=== PATIENT | female | born 1965 | race Caucasian/White ===

== ENCOUNTER 2023-01-09 08:34 | Outpatient (OUT) | payer OTHER, SELFPAY ==
[2023-01-09 08:54] LABS: Basophils Absolute Auto 0.1 10^3/uL (0.0-0.1); Basophils Percent Auto 0.6 % (0.2-2.0); Eosinophils Absolute Auto 0.3 10^3/uL (0.0-0.7); Eosinophils Percent Auto 3.8 % (0.9-7.0); Hematocrit 44.5 % (36.0-48.0); Hemoglobin 14.9 g/dL (12.0-16.0); Immature Granulocytes Abs Auto 0.02 10^3/uL (0.00-0.03); Immature Granulocytes Pct Auto 0.2 % (0.0-0.5); Lymphocytes Absolute Auto 3.7 10^3/uL (1.2-3.8); Lymphocytes Percent Auto 41.8 % (20.5-60.0); Mean Corpuscular HGB Conc 33.5 g/dL (29.9-35.2); Mean Corpuscular Hemoglobin 29.6 pg (26.7-34.0); Mean Corpuscular Volume 88.3 fL (81.0-99.0); Mean Platelet Volume 11.2 fL (9.5-13.5); Monocytes Absolute Auto 0.6 10^3/uL (0.3-0.8); Monocytes Percent Auto 7.2 % (1.7-12.0); Neutrophils Absolute Auto 4.1 10^3/uL (1.4-6.5); Neutrophils Percent Auto 46.4 % (43.0-75.0); Platelet Count 269 10^3/uL (150-450); Red Blood Count 5.04 10^6/uL (4.20-5.40); Red Cell Distribution Width 13.1 % (11.0-15.0); White Blood Count 8.9 10^3/uL (4.0-11.0)
[2023-01-09 10:28] LABS: Alanine Aminotransferase 19 U/L (14-59); Albumin Level 3.7 g/dL (3.4-5.0); Alkaline Phosphatase 91 U/L (46-116); Anion Gap 11.4; Aspartate Amino Transferase 8 U/L (15-37); Calcium 9.8 mg/dL (8.5-10.1); Carbon Dioxide 30.8 mmol/L (21.0-32.0); Chloride 102 mmol/L (98-107); Chol HDL Ratio 4.2; Cholesterol 160 mg/dL (<=200); Estimated GFR (African America >60 (>=60); Estimated GFR (Non-African Ame 57 (>=60); Free T3 2.46 pg/mL (2.18-3.98); Globulin 3.7 g/dL; Glucose 218 mg/dL (74-106); HDL Cholesterol 38 mg/dL (40-60); Potassium 4.2 mmol/L (3.5-5.1); Sodium 140 mmol/L (136-145); Thyroid Stimulating Hormone 1.159 uIU/mL (0.358-3.740); Total Protein 7.4 g/dL (6.4-8.2); Triglycerides 142 mg/dL (<=150); VLDL CHOLESTEROL 28.4 mg/dL
[2023-01-09 11:22] LABS: Estimated Average Glucose 237 mg/dL; Glycohemoglobin A1C 9.9 % (4.5-6.2)
== END 2023-01-09 08:35 | disposition home or self-care (01) ==
PROVIDERS: PCP Family Medicine; Visit Provider Family Medicine
DX: Z00.00 Encounter for general adult medical examination without abnormal findings (principal)
CPT/HCPCS: 36415; 80053; 80061; 82306; 83036; 84436; 84443; 84481; 85025

== ENCOUNTER 2023-01-18 10:47 | Outpatient (OUT) | payer OTHER, SELFPAY ==
--- NOTE | 2023-01-18 10:53 | MM_ITS ---
Patient: ESTEVAN BELLA Exam Date: 01/18/2023 : 1965 Gender:F Ordering : DR Sherif Finch . Admission #: [id number] Family : Order #: [id number] CLICK HERE TO VIEW EXAM RADIOLOGY REPORT PROCEDURE: MM TOMOSYNTHESIS SCREENING BI COMPARISON: MG MAMM SCREEN MIN W CAD, 03/15/2019. MG MAMM SCREEN 3D MIN CAD, 08/11/2021. INDICATIONS: Z12.31 Calculator Name NCI Breast Cancer Risk Assessment Tool 5 Year Breast Cancer Risk 1.10% Lifetime Breast Cancer Risk 5.90% Personal Breast Cancer No Personal Ovarian Cancer No Treatments None Family Cancers Grandmother-maternal with breast cancer at age ~50; Grandmother-paternal with breast cancer at age ~50; Cousin-maternal with breast cancer at age 49. LOCATION: [facility] BREAST COMPOSITION: Scattered areas fibroglandular density. FINDINGS: DIAGNOSTIC CATEGORY 2--BENIGN FINDING. NO CHANGE FROM COMPARISON. Bilateral very nodular parenchymal pattern grossly stable but limiting diagnostic sensitivity for mass. Scattered benign-appearing calcifications are present. Scattered benign-appearing lymph nodes are present. RIGHT BREAST: No significant suspicious finding. LEFT BREAST: No significant suspicious finding. RECOMMENDATIONS: ROUTINE MAMMOGRAM AND CLINICAL EVALUATION IN 12 MONTHS. PLEASE NOTE: A NORMAL MAMMOGRAM DOES NOT EXCLUDE THE POSSIBILITY OF BREAST CANCER. A CLINICALLY SUSPICIOUS PALPABLE LUMP SHOULD BE BIOPSIED. Dictated by: Yousif Cruz MD on 01/18/2023 at 15:42 Approved by: Yousif Cruz MD on 01/18/2023 at 15:43
== END 2023-01-18 10:48 | disposition home or self-care (01) ==
LOC: MAMMO 10:47
PROVIDERS: PCP Family Medicine; Visit Provider Family Medicine
DX: Z12.31 Encounter for screening mammogram for malignant neoplasm of breast (principal); Z80.3 Family history of malignant neoplasm of breast
CPT/HCPCS: 77063; 77067

== ENCOUNTER 2023-12-16 14:55 | Outpatient (OUT) | payer SELFPAY ==
--- NOTE | 2023-12-16 14:56 | XR_ITS ---
The [address] [address] Patient Name: ESTEVAN BELLA MRN: [id number] date: 1965 Sex: F Assigned Patient Location: [facility] Current Patient Location: Accession/Order Number: [id number] Exam Date: 12/16/2023 14:56 Report Date: 12/17/2023 11:00 At the request of: SEDRICK DIAZ Procedure: XR chest 2V PROCEDURE: XR chest 2V DATE: 12/16/2023 1:56 PM CDT COMPARISONS: None. CLINICAL INDICATION: 58 years Female Wheezing R06.2 FINDINGS: The heart is slightly prominent. The pulmonary vasculature is not congested. There are findings consistent with a 2.4 cm calcified granuloma mid lower right lung. There is evidence of calcified right hilar nodes. The findings are consistent with granulomatous changes. The lungs are otherwise clear. There is no evidence of pleural effusion or pneumothorax. XR/XR chest 2V IMPRESSION: 1. Heart is slightly prominent 2. Old granulomatous changes right lung 3. No consolidating infiltrates to suggest pneumonia. Electronically authenticated by: DARIA ALONZO Date: 12/17/2023 11:00
== END 2023-12-16 14:56 | disposition home or self-care (01) ==
PROVIDERS: PCP Family Medicine; Visit Provider Family Medicine
DX: R06.2 Wheezing (principal)
CPT/HCPCS: 71046

== ENCOUNTER 2024-06-18 20:29 | Emergency (ER) | payer SELFPAY ==
--- OUTSIDE RECORDS SUMMARY | 2024-06-18 20:34 | XMS_ITS | CCD ---
Author Organization [facility] Care Team Providers Care Plastic Fabricator Name Role Phone Robbie Troy Unavailable [phone] Lamberto Pollack Unavailable Josette Cohn Unavailable JOE, DR DUBOSE Consulting Unavailable JOE, DR DUBOSE Primary Care Unavailable JOE, DR DUBOSE Admitting Unavailable JOE, DR DUBOSE Attending Unavailable JOE, DR DUBOSE Primary Care Unavailable JOE, DR DUBOSE Admitting Unavailable JOE, DR DUBOSE Attending Unavailable JOE, DR DUBOSE Consulting Unavailable [place], DR MARIUSZ Bueno Consulting Unavailable Allergies Allergy Classification Reported Allergen(s) Allergy Type Date of Onset Reaction(s) Facility (5 sources) sulfADIAZINE Drug Allergy [place] [facility] Other Medications Current Medications Medication Drug Class(es) Dates Sig (Normalized) Sig (Original) amLODIPine 10 mg oral tablet (5 sources) Dihydropyridine Calcium Channel Cody take 1 tablet by mouth once daily amLODIPine Besylate 10 MG TAKE 1 TABLET BY MOUTH EVERY DAY Active atorvastatin 40 mg oral tablet (5 sources) HMG-CoA Reductase Inhibitor take 1 tablet by mouth every twenty-four hours Atorvastatin Calcium 40 MG 1 tablet Orally Once a day Active cetirizine hydrochloride 10 mg oral tablet (5 sources) Histamine-1 Receptor Antagonist take 1 tablet by mouth every twenty-four hours Cetirizine HCl 10 MG 1 tablet Orally Once a day for 30 day(s) Active diclofenac sodium 75 mg delayed release oral tablet (5 sources) Nonsteroidal Anti-inflammatory Drug take 1 tablet by mouth every twelve hours Diclofenac Sodium 75 MG 1 tablet with food or milk Orally Twice a day for 30 day(s) Active DULoxetine 60 mg delayed release oral capsule (5 sources) Serotonin and Norepinephrine Reuptake Inhibitor take 2 capsules by mouth every twenty-four hours DULoxetine HCl 60 MG 2 capsule Orally Once a day Active empagliflozin 25 mg oral tablet (5 sources) Sodium-Glucose Cotransporter 2 Inhibitor take 1 tablet by mouth every twenty-four hours Jardiance 25 MG 1 tablet Orally Once a day for 30 days pt has coupon card Active Hydrochlorothiazide -25 mg 25 MG (5 sources) take 1 tablet by mouth once daily in the morning Hydrochlorothiazi de-25 mg 25 MG 1 tablet in the morning Orally Once a day Active 3 ml liraglutide 6 mg/ml pen injector (5 sources) GLP-1 Receptor Agonist Start: 12-25-2020 inject 1.8 mg by subcutaneous injection once daily Victoza 18 MG/3ML 1.8 mg Subcutaneous daily for 30 days Dec, Active lisinopril 40 mg oral tablet (5 sources) Angiotensin Converting Enzyme Inhibitor take 1 tablet by mouth once daily Lisinopril 40 MG TAKE 1 TABLET BY MOUTH EVERY DAY Active metFORMIN hydrochloride 1000 mg oral tablet (5 sources) Biguanide take 1 tablet by mouth every twelve hours metFORMIN HCl 1000 MG 1 tablet Orally bid Active metoprolol tartrate 50 mg oral tablet (5 sources) beta-Adrenergic Cody take 1 tablet by mouth every twelve hours Metoprolol Tartrate 50 MG 1 tablet with food Orally Twice a day for 90 Active pioglitazone 30 mg oral tablet (1 source) Peroxisome Proliferator Receptor alpha Agonist, Peroxisome Proliferator Receptor gamma Agonist, Thiazolidinedione take 1 tablet by mouth every twenty-four hours Pioglitazone HCl 30 MG 1 tablet Orally Once a day Active QUEtiapine 200 mg oral tablet (5 sources) Atypical Antipsychotic take 1 tablet by mouth every twenty-four hours QUEtiapine Fumarate 200 MG 1 tablet Orally Once a day Active 1 mg dose 1.5 ml semaglutide 1.34 mg/ml pen injector (1 source) Ozempic (1 MG/DOSE) 2 MG/1.5ML 1 mg as directed Subcutaneous weekly for 84 days pt has coupon card Active Vitamin B 12 500 MCG (5 sources) take 1 tablet by mouth once daily Vitamin B 12 500 MCG 1 tablet Orally Once a day for 30 day(s) Active Vitamin D3 2000 UNIT (5 sources) take 1 capsule by mouth once daily Vitamin D3 2000 UNIT 1 capsule Orally Once a day Active Problems Active Problems Problem Classification Problem Date Documented Date Episodic/Chronic Adjustment disorders (5 sources) Adjustment disorder; Translations: [Adjustment disorder, unspecified] Chronic Diabetes mellitus with complications (11 sources) Hyperglycemia due to type 2 diabetes mellitus; Translations: [Type 2 diabetes mellitus with hyperglycemia] Onset: 01-22-2021 Resolved: 01-22-2021 Chronic Diabetes mellitus without complication (5 sources) Type 2 diabetes mellitus without complication; Translations: [Type 2 diabetes mellitus without complications] Chronic Disorders of lipid metabolism (8 sources) Mixed hyperlipidemia; Translations: [Mixed hyperlipidemia] Onset: 01-22-2021 Resolved: 01-22-2021 Chronic Essential hypertension (18 sources) Elevated blood pressure; Translations: [Essential (primary) hypertension] Onset: 01-22-2021 Resolved: 01-22-2021 Chronic Mood disorders (11 sources) Bipolar II disorder; Translations: [Bipolar II disorder] Onset: 01-22-2021 Resolved: 01-22-2021 Chronic Nutritional deficiencies (5 sources) Vitamin D deficiency; Translations: [Vitamin D deficiency, unspecified] Chronic Osteoarthritis (6 sources) Osteoarthritis of knee; Translations: [Osteoarthritis of knee, unspecified] Onset: 01-22-2021 Resolved: 01-22-2021 Chronic Other nutritional; endocrine; and metabolic disorders (20 sources) Body mass index 40+ - severely obese; Translations: [Morbid (severe) obesity due to excess calories] Chronic Other nutritional; endocrine; and metabolic disorders (1 source) Body mass index (BMI) 50.0-59.9, adult; Translations: [BMI 50.0-59.9, adult Z68.43] Onset: 01-22-2021 Resolved: 01-22-2021 Chronic Other screening for suspected conditions (not mental disorders or infectious disease) (4 sources) Encounter for screening mammogram for malignant neoplasm of breast; Translations: [ENC SCR MAMMO MALIG NEOPLASM BREAST] Onset: 08-11-2021 Episodic Residual codes; unclassified (15 sources) Obstructive sleep apnea syndrome; Translations: [Obstructive sleep apnea (adult) (pediatric)] Chronic Residual codes; unclassified (1 source) Family history of malignant neoplasm of breast; Translations: [FAMILY HX MALIG NEOPLASM OF BREAST] Onset: 08-14-2021 Episodic Past or Other Problems Problem Classification Problem Date Documented Da te Episodic/Chronic Residual codes; unclassified (5 sources) Insomnia; Translations: [Insomnia, unspecified] Episodic Results Test Name Value Interpretation Reference Range Facility INSULINon 08-28-2021 Insulin 13.7 uIU/mL Normal 2.6-24.9 [facility] Comment on above: Performed By: #### I YOLANDA ELA, VITB12 #### [facility] [address] [place] [address] Dr. Bala Machuca CBC AUTO DIFFon 08-27-2021 BASO # 0.1 103/ul Normal 0.0-0.1 [facility] Comment on above: Performed By: #### C BC #### [facility] [address] [place] [address] Dr. Bala Machuca Basophils/100 WBC (Bld) 0.6 % Normal 0.2-2.0 [facility] Comment on above: Performed By: #### C BC #### [facility] [address] [place] [address] Dr. Bala Machuca EO # 0.3 103/ul Normal 0.0-0.7 [facility] Comment on above: Performed By: #### C BC #### [facility] [address] [place] [address] Dr. Bala Machuca Eosinophils/100 WBC (Bld) 2.5 % Normal 0.9-7.0 [facility] Comment on above: Performed By: #### C BC #### [facility] [address] [place] [address] Dr. Bala Machuca Erythrocyte distribution width (RBC) [Ratio] 13.2 % Normal 11.0-15.0 [facility] Comment on above: Performed By: #### C BC #### [facility] [address] [place] [address] Dr. Bala Machuca Hematocrit (Bld) [Volume fraction] 44.7 % Normal 36.0-48.0 [facility] Comment on above: Performed By: #### C BC #### [facility] [address] [place] [address] Dr. Bala Machuca Hemoglobin (Bld) [Mass/Vol] 14.6 g/dL Normal 12.0-16.0 [facility] Comment on above: Performed By: #### C BC #### [facility] [address] [place] [address] Dr. Bala Machuca IG # 0.04 10e3/ul Critically high 0.00-0.03 [facility] Comment on above: Performed By: #### C BC #### [facility] [address] [place] [address] Dr. Bala Machuca IG % 0.4 % Normal 0.0-0.5 [facility] Comment on above: Performed By: #### C BC #### [facility] [address] [place] [address] Dr. Bala Machuca LYMPH # 2.8 103/ul Normal 1.2-3.8 [facility] Comment on above: Performed By: #### C BC #### [facility] [address] [place] [address] Dr. Bala Machuca Lymphocytes/100 WBC (Bld) 26.3 % Normal 20.5-60.0 [facility] Comment on above: Performed By: #### C BC #### [facility] [address] [place] [address] Dr. Bala Machuca MANUAL DIFF REQ NO Normal [facility] Comment on above: Performed By: #### C BC #### [facility] [address] [place] [address] Dr. Bala Machuca MCH (RBC) [Entitic mass] 29.3 pg Normal 26.7-34.0 [facility] Comment on above: Performed By: #### C BC #### [facility] [address] [place] [address] Dr. Bala Machuca MCHC (RBC) [Mass/Vol] 32.7 g/dL Normal 29.9-35.2 [facility] Comment on above: Performed By: #### C BC #### [facility] [address] [place] [address] Dr. Bala Machuca MCV (RBC) [Entitic vol] 89.6 fL Normal 81.0-99.0 [facility] Comment on above: Performed By: #### C BC #### [facility] [address] [place] [address] Dr. Bala Machuca MONO # 0.7 103/ul Normal 0.3-0.8 [facility] Comment on above: Performed By: #### C BC #### [facility] [address] [address] [address] Bala Machuca Monocytes/100 WBC (Bld) 6.1 % Normal 1.7-12.0 [facility] Comment on above: Performed By: #### C BC #### [facility] [address] [address] [address] Bala Machcua NEUT # 6.8 103/ul Critically high 1.4-6.5 [facility] Comment on above: Performed By: #### C BC #### [facility] [address] [address] [address] Bala Machuca Neutrophils/100 WBC (Bld) 64.1 % Normal 43.0-75.0 [facility] Comment on above: Performed By: #### C BC #### [facility] [address] [place] [address] Dr. Bala Machuca Platelet mean volume (Bld) [Entitic vol] 11.5 fL Normal 9.5-13.5 [facility] Comment on above: Performed By: #### C BC #### [facility] [address] [place] [address] Dr. Bala Machuca PLT 260 103/ul Normal 150-450 [facility] Comment on above: Performed By: #### C BC #### [facility] [address] [place] [address] Dr. Bala Machuca RBC 4.99 106/ul Normal 4.20-5.40 [facility] Comment on above: Performed By: #### C BC #### [facility] [address] [place] [address] Dr. Bala Machuca WBC 10.6 103/ul Normal 4.0-11.0 [facility] Comment on above: Performed By: #### C BC #### [facility] [address] [place] [address] Dr. Bala Machuca FREE THYROXINE INDEX T7on FTI 2.42 Normal [facility] Comment on above: Performed By: #### T SH, T7, CMP, LIPID #### [facility] [address] [address] [address] Bala Machuca T3U 35.0 % Normal 23.5-40.5 [facility] Comment on above: Performed By: #### T SH, T7, CMP, LIPID #### [facility] [address] [address] [address] Bala Machuca T4 [Mass/Vol] 6.90 ug/dL Normal 4.80-13.[address] [facility] Comment on above: Performed By: #### T SH, T7, CMP, LIPID #### [facility] [address] [address] [address] Bala Machuca GLYCOHEMOGLOBIN A1Con 2021 ADA RECOMMENDATION SEE BELOW Normal [facility] Comment on above: Result Comment: ADA RECOMMENDED LIMIT 4.0 - 6.0 ADA THERAPEUTIC TARGET < 7.0 ACTION SUGGESTED > 7.0 Performed By: #### I LEA GUERRERO, VITB12 #### [facility] [address] [address] [address] Bala Machuca Glucose [Mass/Vol] 243 mg/dL Normal [facility] Comment on above: Performed By: #### I ELA GUERRERO, VITB12 #### [facility] [address] [place] [address] Dr. Bala Machuca HbA1c (Bld) [Mass fraction] 10.1 % Critically high 4.5-6.2 [facility] Comment on above: Performed By: #### I ELA GUERRERO, VITB12 #### [facility] [address] [place] [address] Dr. Bala Machuca IRONon 08-27-2021 Iron [Mass/Vol] 62.0 ug/dL Normal 50.0-170.0 [facility] Comment on above: Performed By: #### I ELA GUERRERO, VITB12 #### [facility] [address] [place] [address] Dr. Bala Machuca LIPID PROFILEon 08-27-2021 CHOL-HDL RATIO NORM SEE BELOW Normal [facility] Comment on above: Result Comment: 3.3 - 4.4 LOW RISK 4.4 - 7.1 AVERAGE RISK 7.1 - 11.0 MODERATE RISK >11.0 HIGH RISK Performed By: #### T SH, T7, CMP, LIPID #### [facility] [address] [address] [address] Bala Machuca Cholesterol [Mass/Vol] 121 mg/dL Normal <=200 [facility] Comment on above: Performed By: #### T SH, T7, CMP, LIPID #### [facility] [address] [address] [address] Bala Machuca Cholesterol in HDL [Mass/Vol] 36 mg/dL Critically low 40-60 [facility] Comment on above: Performed By: #### T SH, T7, CMP, LIPID #### [facility] [address] [place] [address] Dr. Bala Machuca Cholesterol in LDL [Mass/Vol] 52.8 mg/dL Normal [facility] Comment on above: Performed By: #### T SH, T7, CMP, LIPID #### [facility] [address] [place] [address] Dr. Bala Machuca Cholesterol.total/Cho lesterol in HDL [Mass ratio] 3.4 {ratio} Normal [facility] Comment on above: Performed By: #### T SH, T7, CMP, LIPID #### [facility] [address] [address] [address] Bala Machuca HDL NORMAL > or = 60 mg/dl - LOW CARDIOVASCULAR RISK <40 mg/dl - HIGH CARDIOVASCULAR RISK Normal [facility] Comment on above: Performed By: #### T SH, T7, CMP, LIPID #### [facility] [address] [place] [address] Dr. Bala Machuca LDL CALC NORMAL SEE BELOW Normal [facility] Comment on above: Result Comment: <100 mg/dl OPTIMAL 100 - 129 mg/dl NEAR OR ABOVE OPTIMAL 130 - 159 mg/dl BORDERLINE HIGH 160 - 189 mg/dl HIGH >190 mg/dl VERY HIGH Performed By: #### T SH, T7, CMP, LIPID #### [facility] [address] [place] [address] Dr. Bala Machuca Triglyceride [Mass/Vol] 161 mg/dL Critically high <=150 [facility] Comment on above: Performed By: #### T SH, T7, CMP, LIPID #### [facility] [address] [address] [address] Bala Machuca VLDL CALC 32.2 mg/dL Normal [facility] Comment on above: Performed By: #### T SH, T7, CMP, LIPID #### [facility] [address] [place] [address] Dr. Bala Machuca OCC BLD IMMUNO SCREENon 08-02 OCCULT BLOOD Negative Normal NEGATIVE [facility] Comment on above: Performed By: #### O BSCRN #### [facility] [address] [place] [address] Dr. Bala Machuca PROF 14(COMP METB)on 022 Albumin [Mass/Vol] 3.6 g/dL Normal 3.4-5.0 [facility] Comment on above: Performed By: #### T SH, T7, CMP, LIPID #### [facility] [address] [place] [address] Dr. Bala Machuca Albumin/Globulin [Mass ratio] 1.0 {ratio} Normal [facility] Comment on above: Performed By: #### T SH, T7, CMP, LIPID #### [facility] [address] [place] [address] Dr. Bala Machuca ALP [Catalytic activity/Vol] 96 U/L Normal 46-116 [facility] Comment on above: Performed By: #### T SH, T7, CMP, LIPID #### [facility] [address] [place] [address] Dr. Bala Machuca ALT [Catalytic activity/Vol] 22 U/L Normal 14-59 [facility] Comment on above: Performed By: #### T SH, T7, CMP, LIPID #### [facility] [address] [place] [address] Dr. Bala Machuca Anion gap [Moles/Vol] 10.1 mmol/L Normal [facility] Comment on above: Performed By: #### T SH, T7, CMP, LIPID #### [facility] [address] [address] [address] Bala Machuca AST [Catalytic activity/Vol] 11 U/L Critically low 15-37 [facility] Comment on above: Performed By: #### T SH, T7, CMP, LIPID #### [facility] [address] [address] [address] Bala Machuca Bilirubin [Mass/Vol] 1.3 mg/dL Critically high 0.2-1.0 [facility] Comment on above: Performed By: #### T SH, T7, CMP, LIPID #### [facility] [address] [address] [address] Bala Machuca Calcium [Mass/Vol] 9.2 mg/dL Normal 8.5-10.1 [facility] Comment on above: Performed By: #### T SH, T7, CMP, LIPID #### [facility] [address] [address] [address] Bala Machuca Chloride [Moles/Vol] 102 mmol/L Normal 98-107 [facility] Comment on above: Performed By: #### T SH, T7, CMP, LIPID #### [facility] [address] [address] [address] Bala Machuca CO2 [Moles/Vol] 33.1 mmol/L Critically high 21.0-32.0 [facility] Comment on above: Performed By: #### T SH, T7, CMP, LIPID #### [facility] [address] [place] [address] Dr. Bala Machuca Creatinine [Mass/Vol] 0.86 mg/dL Normal 0.55-1.02 [facility] Comment on above: Performed By: #### T SH, T7, CMP, LIPID #### [facility] [address] [place] [address] Dr. Bala Machuca EGFR-AF SWISS >60 Normal >=60 [facility] Comment on above: Performed By: #### T SH, T7, CMP, LIPID #### [facility] [address] [place] [address] Dr. Bala Machuca EGFR-NON AF SWISS >60 Normal >=60 [facility] Comment on above: Performed By: #### T SH, T7, CMP, LIPID #### [facility] [address] [address] [address] Bala Machuca Globulin (S) [Mass/Vol] 3.5 g/dL Normal [facility] Comment on above: Performed By: #### T SH, T7, CMP, LIPID #### [facility] [address] [address] [address] Bala Machuca Glucose [Mass/Vol] 251 mg/dL Critically high 74-106 [facility] Comment on above: Performed By: #### T SH, T7, CMP, LIPID #### [facility] [address] [place] [address] Dr. Bala Machuca Potassium [Moles/Vol] 4.2 mmol/L Normal 3.5-5.1 [facility] Comment on above: Performed By: #### T SH, T7, CMP, LIPID #### [facility] [address] [place] [address] Dr. Bala Machuca Protein [Mass/Vol] 7.1 g/dL Normal 6.1-8.2 [facility] Comment on above: Performed By: #### T SH, T7, CMP, LIPID #### [facility] [address] [place] [address] Dr. Bala Machuca Sodium [Moles/Vol] 141 mmol/L Normal 136-145 [facility] Comment on above: Performed By: #### T SH, T7, CMP, LIPID #### [facility] [address] [place] [address] Dr. Bala Machuca Urea nitrogen [Mass/Vol] 13.0 mg/dL Normal 7.0-18.0 [facility] Comment on above: Performed By: #### T SH, T7, CMP, LIPID #### [facility] [address] [place] [address] Dr. Bala Machuca Urea nitrogen/Creatinine [Mass ratio] 15.1 mg/mg Normal [facility] Comment on above: Performed By: #### T SH, T7, CMP, LIPID #### [facility] [address] [address] [address] Bala Machuca TSHon 08-27-2021 TSH 1.020 uIU/mL Normal 0.470-4.[address] [facility] Comment on above: Performed By: #### T SH, T7, CMP, LIPID #### [facility] [address] [place] [address] Dr. Bala Machuca TSH RANGE SEE BELOW Normal [facility] Comment on above: Result Comment: <0.3 4 UIU/ml HYPERTHYROID 0.34-5.60 UIU/ml EUTHYROID >5.60 UIU/ml HYPOTHYROID Performed By: #### T SH, T7, CMP, LIPID #### [facility] [address] [place] [address] Dr. Bala Machuca VITAMIN B12on 08-27-2021 Cobalamin (Vitamin B12) [Mass/Vol] 354.0 pg/mL Normal 239.0-931.0 [facility] Comment on above: Performed By: #### I YOLANDA VITAD, VITB12 #### [facility] [address] [place] [address] Dr. Bala Machuca VITAMIN D 25 OHon 08-27-2021 VIT D 25-OH 44.0 ng/mL Normal [facility] Comment on above: Performed By: #### I YOLANDA VITAD, VITB12 #### [facility] [address] [place] [address] Dr. Bala Machuca VIT D RANGES SEE BELOW Normal [facility] Comment on above: Result Comment: <20 ng/mL Vit D deficient 20 - <30 ng/mL Vit D insufficient 30 - 100 ng/mL Vit D sufficient >100 ng/mL Potential Toxicity Performed By: #### I YOLANDA VITAD, VITB12 #### [facility] [address] [place] [address] Dr. Bala Machuca MG MAMM SCREEN 3D MIN CADon 08-11-2021 MG MAMM SCREEN 3D MIN CAD Patient: ESTEVAN BELLA Exam Date: 08/11/2021 : 1965 Gender:F Ordering : DR SEDRICK DIAZ . Admission #: [id number] Family : Order #: [id number] CLICK HERE TO VIEW EXAM RADIOLOGY REPORT PROCEDURE: MAMMOGRAM SCREENING 3D BILATERAL CAD COMPARISON: MG MAMM SCREEN MIN W CAD, 10/05/2017. MG MAMM SCREEN MIN W CAD, 03/15/2019. INDICATIONS: Screening mammography Calculator Name NCI Breast Cancer Risk Assessment Tool 5 Year Breast Cancer Risk 1.00% Lifetime Breast Cancer Risk 6.20% Personal Breast Cancer No Personal Ovarian Cancer No Treatments None Family Cancers Grandmother-maternal with breast cancer at age 50; Grandmother-paternal with breast cancer at age 50; Cousin-maternal with breast cancer at age 49. LOCATION: [facility] BREAST COMPOSITION: Scattered areas fibroglandular density. FINDINGS: DIAGNOSTIC CATEGORY 2--BENIGN FINDING. NO CHANGE FROM COMPARISON. Very nodular bilateral parenchymal pattern while grossly stable this does limit diagnostic sensitivity. Scattered benign-appearing calcifications are present. Scattered benign-appearing lymph nodes are present. RIGHT BREAST: No significant suspicious finding. LEFT BREAST: No significant suspicious finding. RECOMMENDATIONS: ROUTINE MAMMOGRAM AND CLINICAL EVALUATION IN 12 MONTHS. PLEASE NOTE: A NORMAL MAMMOGRAM DOES NOT EXCLUDE THE POSSIBILITY OF BREAST CANCER. A CLINICALLY SUSPICIOUS PALPABLE LUMP SHOULD BE BIOPSIED. Dictated by: Mariusz Cruz MD on 08/11/2021 at 09:30 Approved by: Mariusz Cruz MD on 08/11/2021 at 09:33 Normal [facility] Salivary Cortisol 2 Specimen son 09-24-2020 Salivary Cortisol #1 0.045 ug/dL Normal . [facility] Comment on above: Order Comment: Reaso n for Exam Abnormal weight gain;Type II or unspecified type diabetes mi 1ST SPEC. 09-23 AT 2300 2ND SPEC 09-24 2330 Result Comment: This test was developed and its performance characteristics determined by [facility]. It has not been cleared or approved by the Food and Drug Administration. Draw date/time: 09/23/20 - 23:00 Reference Range: Children and Adults: 8:00a.m.: 0.025 - 0.600 Noon: <0.010 - 0.330 4:00p.m.: 0.010 - 0.200 Midnight: <0.010 - 0.090 Performed By: #### S AL BRANDI 2 SPEC #### [facility] , Salivary Cortisol #2 Normal . [facility] Comment on above: Order Comment: Reaso n for Exam Abnormal weight gain;Type II or unspecified type diabetes me 1ST SPEC. 0524 AT 2300 2ND SPEC 09-24 2330 Result Comment: Test not performed. Insufficient specimen to perform or complete analysis. Contacted your facility 10/02/2020 PERFORMED BY: [facility] [place] [address] PATHOLOGIST VP [employer] ORQUIDEA FLAHERTY M.D. Performed By: #### S AL BRANDI 2 SPEC #### [facility] , Vital Signs Date Time Vital Sign Value Performing Clinician Facility 01-22-2021 10:15-0400 Body height 165.1 cm Troy Avalos Jr. Other [facility] Other 01-22-2021 10:15-0400 Body mass index (BMI) [Ratio] 48.97 kg/m2 Troy Avalos Jr. Other [facility] Other 01-22-2021 10:15-0400 Body weight 133.49 kg Troy Avalos Jr. Other [facility] Other 01-22-2021 10:15-0400 Diastolic blood pressure 83 mm[Hg] Troy Avalos Jr. Other [facility] Other 01-22-2021 10:15-0400 Respiratory rate 18 /min Troy Avalos Jr. Other [facility] Other 01-22-2021 10:15-0400 SaO2% (BldA) [Mass fraction] 98 % Troy Avalos Jr. Other [facility] Other 01-22-2021 10:15-0400 Systolic blood pressure 125 mm[Hg] Troy Avalos Jr. Other [facility] Other Encounters Encounter Date Encounter Type Care Provider Facility Start: 08-28-2021 Encounter for genera l adult medical examination without abnormal findings DR SEDRICK DIAZ [facility] Start: 08-27-2021 End: 08-28-[address] SEDRICK DIAZ Facility:[facility] Start: 08-27-2021 End: 08-28-2021 Encounter for general adult medical examination without abnormal findings DR SEDRICK DIAZ Facility:[facility] Start: 08-11-2021 End: 08-12-[address] SEDRICK DIAZ Facility:[facility] Start: 05-21-2021 End: 05-21-2021 ambulatory Josette Cohn Other [facility] Other Start: 05-21-2021 Telephone encounter Josette Cohn [facility] Start: 04-28-2021 End: 04-28-2021 ambulatory Lamberto Pollack Other [facility] Other Start: 04-28-2021 Telephone encounter Tondra Pollack [facility] Start: 03-21-2021 End: 03-21-2021 ambulatory Troy Avalos Jr. Other [facility] Other Start: 03-21-2021 Telephone encounter Troy Kerr [facility] Start: 02-19-2021 End: 02-19-2021 ambulatory Troy Avalos Jr. Other [facility] Other Start: 02-19-2021 Telephone encounter Troy Kerr [facility] Start: 01-22-2021 [facility] Immunization Date Immunization Notes Care Provider Fa cility 07-25-2020 COVID-19 Vaccine Pfi zer - Documentation Purposes Only Troy Avalos Jr. Other [facility] Other 07-04-2020 COVID-19 Vaccine Pfi zer - Documentation Purposes Only Troy Avalos Jr. Other [facility] Other Payers Date Payer Category Payer Unknown [id number] 1965 Unknown [id number] 1961 Unknown [id number] [id number] Social History Date Type Detail Facility Unknown if ever smoked [facility] Other Sex Assigned At Sex Assigned At Bir th [facility] Other Medical Equipment Procedure Code Equipment Code Equipment Origin al Text Equipment Identifier Dates Start: 05-31-2018 Evaluation note 01-22-2021 Note Date & Type Note Facility 01-22-2021 Evaluation note Encounter Date Diagnosis Assessment Notes Jan, BMI 50.0-59.9, adult (ICD-10 - Z68.43) Jan, Type II or unspecified type diabetes mellitus with unspecified complication, not stated as uncontrolled (ICD-10 - E11.8) Jan, Knee osteoarthritis (ICD-10 - M17.9) Jan, Hypertension (ICD-10 - I10) Jan, Mixed hyperlipidemia (ICD-10 - E78.2) Jan, Bipolar affective disorder (ICD-10 - F31.9) [facility] Other Evaluation note Note Date & Type Note Facility Evaluation note No Information [employer] Other History general Narrative - Reported Note Date & Type Note Facility History general Narrative - Reported Type Medical History HTN Medical History DIABETES, type 2 Medical History BIPOLAR Medical History DEENA Medical History 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 [facility] Other Summary Purpose Family History No Family History Records FoundNo Family History Records Found Advance Directives No Advanced Directives Records FoundNo Advanced Directives Records Found Additional Source Comments INFORMATION SOURCE (unrecogn ized section and content) DATE CREATED AUTHOR 08/16/2021 [facility] DATE CREATED AUTHOR AUTHOR'S ORGANIZ ATION 11/11/2021 [facility] REASON FOR VISIT (unrecogniz ed section and content) [facility] Dr Velázquez/[facility] N Dr. velázquez/u can lon 02/20/2021, LM 03/19[facility] Pt does not wish our services 03/26/21[facility] Pt cancelled DM appt 04/28DC Medication FOR RECORDS PERTAINING TO PATIENTS WHO ARE OR HAVE BEEN ENROLLED IN A CHEMICAL DEPENDENCY/SUBSTANCEABUSE PROGRAM, SOME INFORMATION MAY BE OMITTED. This clinical summary was aggregated from multiple sources. Caution should be exercised in using it in the provision of clinical care. This summary normalizes information from multiple sources, and as a consequence, information in this document may materially change the coding, format and clinical context of patient data. In addition, data may be omitted in some cases. CLINICAL DECISIONS SHOULD BE BASED ON THE PRIMARY CLINICAL RECORDS. [employer] [facility]. provides no warranty or guarantee of the accuracy or completeness of information in this document.
[2024-06-18 20:44] VITALS: BP 191/102; PULSE 75; TEMP 36.6; O2SAT 95; BMI 47.4
--- NOTE | 2024-06-18 20:52 | ED.BACK1 ---
HPI HPI - Back Pain/Injury General Chief Complaint: Back Pain/Injury Stated Complaint: back pain Time Seen by Provider: 06/18/24 20:31 Source: patient Mode of arrival: walk-in Limitations: no limitations History of Present Illness HPI Narrative: This 58-year-old female presents for evaluation of left low back pain. The symptoms have been present for the past 2 to 3 days. She has been having urinary frequency and urgency and states when she has to go she has to go for approximately 1 week. She is not having any fevers or chills. She has no nausea or vomiting. There is no radiation of the back pain into her buttocks or legs. She denies any recent injury. She denies any chest pain or shortness of breath. She denies any numbness or tingling. She has not had any loss of bowel or bladder control. She states she has been using Tylenol and Motrin for the pain without significant improvement. Related Data Home Medications ?Medication ?Instructions ?Recorded ?Confirmed amlodipine 10 mg tablet 10 mg PO DAILY 06/18/24 06/18/24 atorvastatin 40 mg tablet 40 mg PO QPM 06/18/24 06/18/24 citalopram 40 mg tablet 20 mg PO DAILY 06/18/24 06/18/24 famotidine 40 mg tablet 40 mg PO DAILY 06/18/24 06/18/24 glimepiride 1 mg tablet 1.5 mg PO QAM 06/18/24 06/18/24 hydrochlorothiazide 25 mg tablet 25 mg PO DAILY 06/18/24 06/18/24 metformin 1,000 mg 24 hr 1,000 mg PO BID 06/18/24 06/18/24 tablet,extended release (gastric reten.) metoprolol tartrate 100 mg tablet 100 mg PO BID 06/18/24 06/18/24 (Lopressor) Allergies Allergy/AdvReac Type Severity Reaction Status Date / Time Sulfa (Sulfonamide Allergy Rash Verified 06/18/24 20:44 Antibiotics) Opioid HPI Opioid Management Most Recent Opioid Data: Last Pain Scale 6 06/18/24 21:16 06/18/24 Review of Systems ROS Narrative Vital signs and Nursing Notes reviewed: General: Awake, alert, oriented, no acute distress, sitting upright on the stretcher, no respiratory distress HEENT: Normocephalic atraumatic, mucous membranes are moist and pink, eyes are clear, normal conjunctiva, vision is grossly intact Neck: Supple, no midline bony vertebral tenderness Chest: Lungs are clear to auscultation with good air entry, there is no wheezing rhonchi or rales appreciated no accessory muscle use, patient is speaking in complete sentences-no chest wall tenderness to palpation CVS: Regular rate and rhythm S1-S2, no murmurs rubs or gallops, pulses are brisk and equal bilaterally ABD: Obese, soft, nondistended, nontender, no rebound guarding or rigidity, bowel sounds are normal Musc: Mild tenderness to the left lower lumbar region. There is no midline bony vertebral tenderness or step-off. There is no skin rash in this area. There is no tenderness over the buttock indicating sciatica. Extremities: Moving all extremities, no lower extremity tenderness or swelling noted, negative Homans' sign, pulses are brisk and equal bilaterally Skin: Normal in appearance without rash,pallor, petechiae or purpura Neuro: No focal deficits PFSH PFSH Social History Little interest or pleasure in doing things: not at all Feeling down, depressed, or hopeless: not at all Exam Narrative Exam Narrative: Vital signs and Nursing Notes reviewed: Patient is afebrile with a normal pulse, blood pressure is elevated 191/102, she is not hypoxic with pulse ox of 95% on room air General: Awake, alert, oriented, sitting on the side of the bed, no distress noted, she is ambulatory with a steady gait HEENT: Normocephalic atraumatic, mucous membranes are moist and pink, eyes are clear, normal conjunctiva, vision is grossly intact Chest: Lungs are clear to auscultation with good air entry, there is no wheezing rhonchi or rales appreciated no accessory muscle use, patient is speaking in complete sentences-no chest wall tenderness to palpation CVS: Regular rate and rhythm S1-S2, no murmurs rubs or gallops, pulses are brisk and equal bilaterally ABD: Soft, nondistended, nontender, no rebound guarding or rigidity, bowel sounds are normal, no pulsatile masses appreciated Musc: Mild tenderness to palpation in the left lower lumbar region without skin rash or midline bony vertebral tenderness Extremities: Moving all extremities, no lower extremity tenderness or swelling noted, negative Homans' sign, pulses are brisk and equal bilaterally Skin: Normal in appearance without rash,pallor, petechiae or purpura Neuro: No focal deficits Constitutional Vital Signs, click to edit/add: Last Vital Signs Temp 98 F 06/18/24 20:44 Pulse 75 06/18/24 20:44 Resp 18 06/18/24 20:44 BP 191/102 H 06/18/24 20:44 Pulse Ox 95 06/18/24 20:44 O2 Del Method Room Air 06/18/24 20:44 Course Vital Signs Vital signs: Vital Signs Temperature 98 F 06/18/24 20:44 Pulse Rate 75 06/18/24 20:44 Respiratory Rate 18 06/18/24 20:44 Blood Pressure 191/102 H 06/18/24 20:44 Pulse Oximetry 95 06/18/24 20:44 Oxygen Delivery Method Room Air 06/18/24 20:44 Temperature 98 F 06/18/24 20:44 Pulse Rate 75 06/18/24 20:44 Respiratory Rate 18 06/18/24 20:44 Blood Pressure 191/102 H 06/18/24 20:44 Pulse Oximetry 95 06/18/24 20:44 Oxygen Delivery Method Room Air 06/18/24 20:44 MDM - Back Pain/Injury MDM Narrative Medical decision making narrative: This 58-year-old female presents for evaluation of several days of left low back pain. She denies any fall or injury. There is no radiation into her buttocks or legs. It does not go into her abdomen. She has no nausea or vomiting with it. She denies a history of chronic back pain. She also complains of urinary frequency and urgency stating when she has to go she has to go. She has not had any fevers or chills. She is mildly tender in the left lumbar region. There is no reproducible tenderness in her buttocks or legs. Her blood pressure was noted to be elevated upon arrival but she states it is because the roads were really bad when she was driving here. She denies any chest pain or shortness of breath. She does not have a history of kidney stones. She was medicated with IM Toradol since she is driving and CBC with differential, comprehensive metabolic profile and urinalysis was ordered. She has a normal white count and hemoglobin. Electrolytes are normal however her glucose is elevated at 357. Lactic acid is also mildly elevated at 2.7 which is likely a reflection of her elevated glucose. Her urine is negative for infection but does show 2-5 red blood cells per high-power field, but negative for bacteria, white blood cells or nitrites. Clinically I do not suspect that she has a kidney stone as she is not having any nausea or vomiting and there is no radiation of her pain into her abdomen. Did order a lumbar x-ray which was reviewed by myself and I do not see any acute fractures or subluxations. The results of these labs were discussed with her. She will be given a dose of Hillrose to take at home tonight and a prescription for Hillrose, Robaxin, Zofran and ibuprofen to use at home. I suspect that her urinary frequency and urgency is related to her hypoglycemia. This was discussed with her. She is on metformin and glyburide. She was encouraged to watch her diet closely and monitor her glucose closely. OARRS was reviewed and there was no activity noted. Lab Data Labs: Lab Results 06/18/24 06/18/24 Range/Units 21:00 21:07 WBC 9.5 (4.0-11.0) 10^3/uL RBC 5.04 (4.20-5.40) 10^6/uL Hgb 15.0 (12.0-16.0) g/dL Hct 42.9 (36.0-48.0) % MCV 85.1 (81.0-99.0) fL MCH 29.8 (26.7-34.0) pg MCHC 35.0 (29.9-35.2) g/dL RDW 12.9 (11.0-15.0) % Plt Count 282 (150-450) 10^3/uL MPV 11.3 (9.5-13.5) fL Neut % (Auto) 47.5 (43.0-75.0) % Lymph % (Auto) 41.5 (20.5-60.0) % [place] % (Auto) 6.8 (1.7-12.0) % Eos % (Auto) 3.5 (0.9-7.0) % Baso % (Auto) 0.5 (0.2-2.0) % Neut # (Auto) 4.5 (1.4-6.5) 10^3/uL Lymph # (Auto) 4.0 H (1.2-3.8) 10^3/uL [place] # (Auto) 0.7 (0.3-0.8) 10^3/uL Eos # (Auto) 0.3 (0.0-0.7) 10^3/uL Baso # (Auto) 0.1 (0.0-0.1) 10^3/uL Abs Immat Gran (auto) 0.02 (0.00-0.03) 10^3/uL Imm/Tot Granulo (auto) 0.2 (0.0-0.5) % Sodium 139 (136-145) mmol/L Potassium 3.5 (3.5-5.1) mmol/L Chloride 101 (98-107) mmol/L Carbon Dioxide 31.1 (21.0-32.0) mmol/L Anion Gap 10.4 BUN 14.0 (7.0-18.0) mg/dL Creatinine 1.10 H (0.55-1.02) mg/dL Est GFR ( Amer) >60 (>=60 mL/min/1.73m^2) Est GFR (Non-Af Amer) 51 L (>=60 mL/min/1.73m^2) BUN/Creatinine Ratio 12.7 Glucose 357 H (74-106) mg/dL Lactate 2.7 H* (0.4-2.0) mmol/L Calcium 9.6 (8.5-10.1) mg/dL Total Bilirubin 1.0 (0.2-1.0) mg/dL AST 9 L (15-37) U/L ALT 19 (14-59) U/L Alkaline Phosphatase 90 (46-116) U/L Total Protein 7.3 (6.4-8.2) g/dL Albumin 3.6 (3.4-5.0) g/dL Globulin 3.7 g/dL Albumin/Globulin Ratio 1.0 Urine Color Lt. yellow (YELLOW) Urine Clarity Clear (CLEAR) Urine pH 5.5 (5.0-9.0) Ur Specific [place] 1.020 (1.005-1.025) Urine Protein Negative (NEG/TRACE) mg/dL Urine Glucose (UA) >=1000 A (NEGATIVE) mg/dL Urine Ketones Trace A (NEGATIVE) mg/dL Urine Occult Blood Negative (NEGATIVE) Urine Nitrite Negative (NEGATIVE) Urine Bilirubin Negative (NEGATIVE) Urine Urobilinogen 0.2 (0.2-1.0) EU/dL Ur Leukocyte Esterase Negative (NEGATIVE) Urine RBC 2-5 A (0-2) #/HPF Urine WBC None seen (NONE SEEN) #/HPF Ur Squamous Epith Cells Rare (NONE/RARE) #/LPF Urine Crystals None seen (None Seen) #/HPF Urine Bacteria None seen (NONE SEEN) #/HPF Urine Casts None seen (NONE SEEN) #/LPF Urine Mucus None seen (NONE SEEN) Ur Culture Indicated? No Discharge Plan Discharge Chief Complaint: Back Pain/Injury Clinical Impression: Strain of lumbar region, Elevated blood pressure reading, Hyperglycemia Patient Disposition: Home, Self-Care Time of Disposition Decision: 22:00 Condition: Good Prescriptions / Home Meds: No Action amlodipine 10 mg tablet 10 mg PO DAILY atorvastatin 40 mg tablet 40 mg PO QPM glimepiride 1 mg tablet 1.5 mg PO QAM Rx Instructions: administer with breakfast metformin 1,000 mg tablet,ER sonido.retention 24 hr 1,000 mg PO BID citalopram 40 mg tablet 20 mg PO DAILY metoprolol tartrate [Lopressor] 100 mg tablet 100 mg PO BID famotidine 40 mg tablet 40 mg PO DAILY hydrochlorothiazide 25 mg tablet 25 mg PO DAILY Print Language: Maori Instructions: Back Pain (ED), Lower Back Exercises (ED) Referrals: Sherif Finch MD [Primary Care Provider] - 1 week
[2024-06-18] MEDS: KETOROLAC TROMETHAMINE 60 MG/2 ML VIAL IM (21:16)
[2024-06-18 21:17] LABS: Basophils Absolute Auto 0.1 10^3/uL (0.0-0.1); Basophils Percent Auto 0.5 % (0.2-2.0); Eosinophils Absolute Auto 0.3 10^3/uL (0.0-0.7); Eosinophils Percent Auto 3.5 % (0.9-7.0); Hematocrit 42.9 % (36.0-48.0); Immature Granulocytes Abs Auto 0.02 10^3/uL (0.00-0.03); Immature Granulocytes Pct Auto 0.2 % (0.0-0.5); Lymphocytes Percent Auto 41.5 % (20.5-60.0); Mean Corpuscular Hemoglobin 29.8 pg (26.7-34.0); Mean Corpuscular Volume 85.1 fL (81.0-99.0); Mean Platelet Volume 11.3 fL (9.5-13.5); Monocytes Absolute Auto 0.7 10^3/uL (0.3-0.8); Monocytes Percent Auto 6.8 % (1.7-12.0); Neutrophils Absolute Auto 4.5 10^3/uL (1.4-6.5); Neutrophils Percent Auto 47.5 % (43.0-75.0); Platelet Count 282 10^3/uL (150-450); Red Blood Count 5.04 10^6/uL (4.20-5.40); Red Cell Distribution Width 12.9 % (11.0-15.0); White Blood Count 9.5 10^3/uL (4.0-11.0)
[2024-06-18 21:17] LABS: Bilirubin Urine NEGATIVE (NEGATIVE); Blood Urine NEGATIVE (NEGATIVE); Clarity Urine CLEAR (CLEAR); Color Urine LT. YELLOW (YELLOW); Glucose Urine UA >=1000 mg/dL (NEGATIVE); Ketones Urine TRACE mg/dL (NEGATIVE); Leukocyte Esterase Urine NEGATIVE (NEGATIVE); Nitrite Urine NEGATIVE (NEGATIVE); Protein Urine NEGATIVE (NEG/TRACE); Urobilinogen Urine 0.2 EU/dL (0.2-1.0); pH Urine 5.5 (5.0-9.0)
--- NOTE | 2024-06-18 21:21 | XR_ITS ---
The [address] [address] Patient Name: ESTEVAN BELLA MRN: [id number] date: 1965 Sex: F Assigned Patient Location: ER Current Patient Location: Accession/Order Number: [id number] Exam Date: 06/18/2024 21:35 Report Date: 06/18/2024 23:00 At the request of: LEONIDES MARKER Procedure: XR lumbar spine 2-3V EXAM: XR lumbar spine 2-3V HISTORY: left sided low back pain COMPARISON: None. TECHNIQUE: 3 views lumbar spine. FINDINGS: Bones: No radiographic evidence of fracture. Normal vertebral body heights. No aggressive appearing lesion. Alignment: No pathologic listhesis or scoliotic curvature. Degenerative findings: Small endplate osteophytes and disc desiccation at L1-L2. Additional findings: Large volume stool burden. XR/XR lumbar spine 2-3V IMPRESSION: No acute bony abnormality. Unremarkable examination. Electronically authenticated by: DEANNA DAY Date: 06/18/2024 23:00
[2024-06-18 21:23] LABS: Bacteria Urine NONE SEEN #/HPF (NONE SEEN); Cast Seen? NONE SEEN #/LPF (NONE SEEN); Crystals Seen? None Seen #/HPF (None Seen); Mucus Urine NONE SEEN (NONE SEEN); Squamous Epithelial Cell Urine RARE #/LPF (NONE/RARE); WBC Urine NONE SEEN #/HPF (NONE SEEN)
[2024-06-18 21:24] LABS: Urine Culture Indicated NO
[2024-06-18 21:32] LABS: Alanine Aminotransferase 19 U/L (14-59); Albumin Level 3.6 g/dL (3.4-5.0); Alkaline Phosphatase 90 U/L (46-116); Anion Gap 10.4; Aspartate Amino Transferase 9 U/L (15-37); BUN Creatinine Ratio 12.7; Calcium 9.6 mg/dL (8.5-10.1); Carbon Dioxide 31.1 mmol/L (21.0-32.0); Chloride 101 mmol/L (98-107); Estimated GFR (African America >60 (>=60 mL/min/1.73m^2); Estimated GFR (Non-African Ame 51 (>=60 mL/min/1.73m^2); Globulin 3.7 g/dL; Glucose 357 mg/dL (74-106); Potassium 3.5 mmol/L (3.5-5.1); Sodium 139 mmol/L (136-145); Total Protein 7.3 g/dL (6.4-8.2)
[2024-06-18 21:38] LABS: Lactate/Lactic Acid 2.7 mmol/L (0.4-2.0)
[2024-06-18 22:20] VITALS: BP 154/76; PULSE 71; TEMP 36.6; O2SAT 95
[2024-06-18 22:22] LABS: Lactate/Lactic Acid 1.9 mmol/L (0.4-2.0)
[2024-06-18] MEDS: HYDROCODONE/ACET 5-325 MG TABLET 2 TAB PO (22:24)
[2024-06-18] MEDS: ONDANSETRON 4 MG RAPDIS TABLET SL (22:24)
--- NOTE | 2024-06-18 22:30 | PC.NURSE ---
i gave this patient verbal and paper discharge orders along with 4 Rx and medication to go home with, and this patient voices yes to understanding these. at time of discharge this patient voices no concerns and this patient shows no signs of distress
== END 2024-06-18 22:31 | disposition home or self-care (01) ==
PROVIDERS: Emergency Provider Emergency Medicine; PCP Family Medicine
DX: S39.012A Strain of muscle, fascia and tendon of lower back, initial encounter (principal); X58.XXXA Exposure to other specified factors, initial encounter; R03.0 Elevated blood-pressure reading, without diagnosis of hypertension; R73.9 Hyperglycemia, unspecified; Z79.84 Long term (current) use of oral hypoglycemic drugs
CPT/HCPCS: 36415; 72100; 80053; 81001; 83605; 85025; 96372; 99284; J1885; Q0162